=== PATIENT | male | born 1980 | race Caucasian/White ===

== ENCOUNTER 2018-01-07 06:51 | Day surgery (SDC) | payer OTHER ==
[~2018-01-07 06:51] MED LIST: Lactated Ringers 1,000 ML IV SCH; Sodium Chloride 0.9% 10 ML Syringe FLUSH PRN; Sodium Chloride 0.9% 2.5 ML Syringe FLUSH PRN; ceFAZolin 2 GM in Premix Bag 1 BAG IV ONE
--- NOTE | 2018-01-07 07:19 | PCM.PREANE ---
Preanesthetic Assessment - Anesthesia/Transfusion/Family Hx Anesthesia History: Prior Anesthesia Without Reaction Family History of Anesthesia Reaction: No Transfusion History: No Prior Transfusion(s) - Review of Systems General: No Symptoms Pulmonary: No Symptoms Cardiovascular: No Symptoms Gastrointestinal: No Symptoms Neurological: No Symptoms Other: Reports: None - Physical Assessment Height: 6 ft 7 in Weight: 153.314 kg ASA Class: 2 Mental Status: Alert & Oriented x3 Airway Class: Mallampati = 2 Dentition: Reports: Normal Dentition Thyro-Mental Finger Breadths: 3 Mouth Opening Finger Breadths: 3 ROM/Head Extension: Full Lungs: Clear to Auscultation, Normal Respiratory Effort Cardiovascular: Regular Rate, Regular Rhythm - Allergies Allergies/Adverse Reactions: Allergies Allergy/AdvReac Type Severity Reaction Status Date / Time No Known Allergies Allergy Verified 01/04/18 08:18 - Acknowledgements Anesthesia Type Planned: General Anesthesia (ETT) Pt an Appropriate Candidate for the Planned Anesthesia: Yes Alternatives and Risks of Anesthesia Discussed w Pt/Guardian: Yes Pt/Guardian Understands and Agrees with Anesthesia Plan: Yes PreAnesthesia Questionnaire HEENT History: Reports: None Cardiovascular History: Reports: None Respiratory History: Reports: Other (See Below) (Previous smoker, quit 2016) Gastrointestinal History: Reports: None Genitourinary History: Reports: Other (See Below) (nephrectomy) Musculoskeletal History: Reports: Fracture Other Musculoskeletal History: hx multiple fx's Neurological History: Reports: Concussion Psychiatric History: Reports: None Endocrine/Metabolic History: Reports: Obesity/BMI 30+ Hematologic History: Reports: None Immunologic History: Reports: None Oncologic (Cancer) History: Reports: None Dermatologic History: Reports: None - Infectious Disease History Infectious Disease History: Reports: None - Past Surgical History Head Surgeries/Procedures: Reports: None Female Surgical History: Other Female Surgeries/Procedures: rt nephrectomy due to injury Male Surgical History: Reports: Nephrectomy, Vasectomy Musculoskeletal Surgical History: Reports: Other (See Below) Other Musculoskeletal Surgeries/Procedures:: closed reduction-percutaneous pinning left ankle - SUBSTANCE USE Smoking Status *Q: Never Smoker Tobacco Use Within Last Twelve Months: Snuff/Dip Recreational Drug Use History: No - HOME MEDS Home Medications: Home Meds [place] 1 tab PO DAILY 01/04/18 [History] - CURRENT (IN HOUSE) MEDS Current Meds: Current Medications Lactated Ringer's (Ringers, Lactated) 1,000 mls @ 125 mls/hr IV ASDIRECTED SIN Sodium Chloride (Saline Flush) 10 ml FLUSH ASDIRECTED PRN PRN Reason: Keep Vein Open Sodium Chloride (Saline Flush) 2.5 ml FLUSH ASDIRECTED PRN PRN Reason: Keep Vein Open Discontinued Medications Cefazolin Sodium/Dextrose 2 gm (/ Premix) 50 mls @ 100 mls/hr IV ONETIME ONE Stop: 01/05/18 10:40
[2018-01-07] MEDS ORDERED: Sugammadex Sodium 200 MG/2 ML VIAL ONE (07:28)
[2018-01-07] MEDS ORDERED: fentaNYL 250 MCG/5 ML SDV ONE (07:31)
[2018-01-07] MEDS ORDERED: Propofol 200 MG/20 ML SDV ONE (07:31)
[2018-01-07] MEDS ORDERED: Midazolam 1 MG/ML 2 ML SDV ONE (07:31)
[2018-01-07] MEDS ORDERED: Lidocaine 2% 5 ML SDV ONE (07:32)
[2018-01-07] MEDS ORDERED: Glycopyrrolate 0.2 MG/ML SDV ONE (07:32)
[2018-01-07] MEDS ORDERED: Ketorolac 30 MG/ML SDV ONE (07:32)
[2018-01-07] MEDS ORDERED: Rocuronium 10 MG/ML 10 ML Syringe ONE (07:32)
[2018-01-07] MEDS ORDERED: Ondansetron 4 MG/2 ML SDV ONE (07:32)
[2018-01-07] MEDS ORDERED: Bupivacaine 0.5% 10 ML SDV ONE (07:39)
[2018-01-07] MEDS ORDERED: Lidocaine 1% 20 ML MDV ONE (07:39)
[2018-01-07] MEDS ORDERED: ceFAZolin 1 GM Vial ONE (07:44)
[2018-01-07] MEDS ORDERED: Acetaminophen/oxyCODONE 325-5 MG Tab PO PRN (08:52)
--- NOTE | 2018-01-07 08:57 | PCM.OPNOTE ---
- General Post-Op/Procedure Note Date of Surgery/Procedure: 01/07/18 Operative Procedure(s): Excision right neck mass Findings: 2 cm sebaceous cyst Pre Op Diagnosis: Sebaceous cyst Post-Op Diagnosis: same Anesthesia Technique: Local, MAC Primary Surgeon: Margo Mckeon EBL in mLs: 5 Condition: Good
--- NOTE | 2018-01-07 08:59 | PCM48HPAN ---
Post Anesthesia Note - EVALUATION WITHIN 48HRS OF ANESTHETIC Vital Signs in Normal Range: Yes Patient Participated in Evaluation: Yes Respiratory Function Stable: Yes Airway Patent: Yes Cardiovascular Function Stable: Yes Hydration Status Stable: Yes Pain Control Satisfactory: Yes Nausea and Vomiting Control Satisfactory: Yes Mental Status Recovered: Yes Resp Rate: 16
--- NOTE | 2018-01-07 08:59 | PCM.POSTAN ---
POST ANESTHESIA ASSESSMENT - MENTAL STATUS Mental Status: Alert, Oriented - RESPIRATORY Respiratory Status: Respiratory Rate WNL, Airway Patent, O2 Saturation Stable - CARDIOVASCULAR CV Status: Pulse Rate WNL, Blood Pressure Stable - GASTROINTESTINAL GI Status: No Symptoms - POST OP HYDRATION Hydration Status: Adequate & Stable - OBSERVATIONS Free Text/Narrative:: Direct to [facility] for discharge to home after oral intake.
--- NOTE | 2018-01-07 17:28 | OR ---
SURGEON: LUIS A WEN MD DATE OF PROCEDURE: 01/07/2018 PREOPERATIVE DIAGNOSIS: Sebaceous cyst. POSTOPERATIVE DIAGNOSIS: Sebaceous cyst. PROCEDURE PERFORMED: Excision of right neck sebaceous cyst. ANESTHESIA: MAC, local. FLUIDS: See anesthesia record. ESTIMATED BLOOD LOSS: 5 mL. FINDINGS: 2 x 2 x 2 cm sebaceous cyst on the right lower posterior neck. COMPLICATIONS: None. INDICATIONS: The patient is a 37-year-old male, who presents with a mass on the posterior aspect of his right neck. It is where the neck meets the back and runs along a skin crease. Several years ago, became infected and drained. It resolved, but now has come back. It is bothersome when he moves his neck. The decision was made to proceed to the operating room to remove this, given its size and location. I explained the procedure, expected perioperative course, and risks including bleeding, infection, or damage to surrounding structures. The patient verbalized understanding and wishes to proceed. PROCEDURE IN DETAIL: The patient was brought into the OR and placed in a left lateral decubitus position. A time-out was completed verifying the patient's name, age, date of , allergies, and procedure to be performed. Monitored anesthesia care was induced. The posterior neck and upper back were prepped and draped in usual standard fashion. The mass had been marked in the preoperative area. I anesthetized this area with 1% lidocaine plain. A 4 cm incision was made using a 15 blade. Cautery was used to dissect down to the level of the subcutaneous fat. I immediately encountered a cyst wall. This was entered and proteinaceous material was expressed. The cyst wall was then grasped with an Allis and using a combination of cautery and Metzenbaum scissors, I dissected the cyst wall free of the surrounding tissue. The cyst went all the way down to the muscular fascia. Once the cyst wall was completely dissected out, it was passed off the field and sent labeled as sebaceous cyst. Cautery was used to achieve hemostasis within the wound bed. The wound was irrigated copiously with normal saline. The subcutaneous fat layer was then closed with interrupted 3-0 Vicryl sutures. The skin was closed with interrupted 2-0 prolene sutures. Sterile dressings were applied. The patient tolerated the procedure well and was transferred to the PACU in stable condition. KONRAD GILMORE /[id number]
== END 2018-01-07 09:20 | disposition home or self-care (01) ==
LOC: MW.SDS 06:51
PROVIDERS: ATTEND Surgery
DX: L72.0 Epidermal cyst (principal); E66.9 Obesity, unspecified; Z68.38 Body mass index [BMI] 38.0-38.9, adult; Z87.891 Personal history of nicotine dependence
CPT/HCPCS: 88304; J0690; J1885; J2250; J2405; J2704; J3010; J3490; J7120